=== PATIENT | male | born 1955 | race Hispanic/Latino ===

== ENCOUNTER 2022-07-19 07:00 | Day surgery (SDC) | payer MEDICARE ==
[2022-07-13 14:57] LABS: EOSINOPHILS % (AUTO) 1.2 % (0.0-8.0); HEMATOCRIT 23.5 % (42-54); LYMPHOCYTES % (AUTO) 9.2 % (21.0-51.0); MEAN CORPUSCULAR HEMOGLOBIN 30.8 pg (27.0-33.0); MEAN CORPUSCULAR HGB CONC 32.3 g/dL (32.0-36.0); MEAN CORPUSCULAR VOLUME 95.1 fL (79-99); MONOCYTES % (AUTO) 11.7 % (3.0-13.0); NEUTROPHILS % (AUTO) 76.3 % (40.0-77.0); PLATELET COUNT (AUTO) 218 K/uL (130-400); RED BLOOD CELL COUNT(AUTO) 2.47 MIL/uL (4.50-6.20); RED CELL DISTRIBUTION WIDTH 15.9 % (11.0-15.5); WHITE BLOOD COUNT (AUTO) 6.8 K/uL (4.8-10.8)
[2022-07-13 15:14] LABS: CREATININE 3.9 mg/dL (0.5-1.5); POTASSIUM 4.5 mmol/L (3.5-5.1); TOTAL PROTEIN, SERUM 7.5 g/dL (6.0-8.3)
[2022-07-13 15:20] LABS: APPEARANCE,URINE CLOUDY (CLEAR); BILIRUBIN,URINE NEGATIVE (NEGATIVE); COLOR,URINE LIGHT-YELLOW (YELLOW); GLUCOSE, URINE (UA) NEGATIVE (NEGATIVE); KETONES,URINE NEGATIVE (NEGATIVE); LEUKOCYTE ESTERASE ,URINE 500 Leu/uL (NEGATIVE); NITRATE,URINE NEGATIVE (NEGATIVE); OCCULT BLOOD,URINE MODERATE (NEGATIVE); PROTEIN,URINE 70 mg/dL (NEGATIVE); UROBILINOGEN,URINE 0.2 mg/dL (0.2-1.0)
[2022-07-13 15:28] LABS: BACTERIA,URINE RARE /HPF (None Seen); MUCUS,URINE RARE LPF (None Seen); RBC,URINE 26-50 /HPF (0-1); SQUAMOUS EPITHELIAL CELL,UR FEW /HPF (0-2); WBC,URINE TNTC /HPF (0-1)
[2022-07-13 15:32] LABS: INR 1.04 (0.85-1.15); PROTHROMBIN TIME 11.3 SEC (9.6-11.6)
[2022-07-13 15:33] LABS: PARTIAL THROMBOPLASTIN TIME 28.4 SEC (26.3-35.5)
[2022-07-19] VITALS (21 sets, daily range): BP systolic 14–148; BP diastolic 1–82
[~2022-07-19] VITALS: Ht 185.4 cm; Wt 47.6 kg
[~2022-07-19 07:00] MED LIST: CALC0.25 PO; FOL5I PO; GENTAMICIN 80 MG/NS 100 ML PB 100 ML IV SCH; LEVO-70 PO; MEROPENEM 1 GM VIAL IVP SCH; PARO-66 PO; TAMS-1 PO
[2022-07-19] MEDS ORDERED: LACTATED RINGERS 1000ML 1,000 ML IV ONE (07:12)
[2022-07-19 07:37] LABS: HEMATOCRIT 23.4 % (42-54); LYMPHOCYTES % (AUTO) 17.3 % (21.0-51.0); MEAN CORPUSCULAR HEMOGLOBIN 30.9 pg (27.0-33.0); MEAN CORPUSCULAR HGB CONC 32.5 g/dL (32.0-36.0); MEAN CORPUSCULAR VOLUME 95.1 fL (79-99); MONOCYTES % (AUTO) 9.9 % (3.0-13.0); NEUTROPHILS % (AUTO) 68.3 % (40.0-77.0); PLATELET COUNT (AUTO) 215 K/uL (130-400); POTASSIUM 4.4 mmol/L (3.5-5.1); RED BLOOD CELL COUNT(AUTO) 2.46 MIL/uL (4.50-6.20); RED CELL DISTRIBUTION WIDTH 15.6 % (11.0-15.5)
[2022-07-19] MEDS ORDERED: ROCURONIUM 10MG/1ML SYR 10 MG/ML ML ONE (10:47)
[2022-07-19] MEDS ORDERED: SUCCINYLCHOLINE 200MG/10ML SYR ONE (10:47)
[2022-07-19] MEDS ORDERED: LIDOCAINE PF 100MG/5ML (2%) SYRINGE 5ML ONE ×2 (10:47→12:36)
[2022-07-19] MEDS ORDERED: PROPOFOL 10 MG/ML 20ML VIAL IV ONE (10:47)
[2022-07-19] MEDS ORDERED: MIDAZOLAM HCL 1 MG/ML 2ML VIAL ONE (10:47)
[2022-07-19] MEDS ORDERED: GLYCOPYRROLATE 1 MG/5 ML SYRINGE ONE (10:47)
[2022-07-19] MEDS ORDERED: DEXAMETHASONE SOD PHOSPHATE 10MG/ML 1ML VIAL ONE (10:47)
[2022-07-19] MEDS ORDERED: ONDANSETRON 4MG INJ ONE ×2 (10:47→13:44)
[2022-07-19] MEDS ORDERED: NEOSTIGMINE 5MG/5ML SYR IV ONE (10:47)
[2022-07-19] MEDS ORDERED: FENTANYL CITRATE PF 50 MCG/1 ML 2ML VIAL ONE (10:48)
[2022-07-19] MEDS ORDERED: MEROPENEM 1 GM VIAL IVP ONE (11:09)
[2022-07-19] MEDS ORDERED: EPHEDRINE SULFATE 50 MG/ML AMPULE ONE (11:43)
[2022-07-19] MEDS ORDERED: MORPHINE 2 MG SYG ONE (13:43)
[2022-07-19 13:52] LABS: BASOPHILS % (AUTO) 0.5 % (0.0-5.0); EOSINOPHILS % (AUTO) 0.7 % (0.0-8.0); HEMATOCRIT 21.7 % (42-54); LYMPHOCYTES % (AUTO) 15.1 % (21.0-51.0); MEAN CORPUSCULAR HEMOGLOBIN 30.7 pg (27.0-33.0); MEAN CORPUSCULAR HGB CONC 32.7 g/dL (32.0-36.0); MEAN CORPUSCULAR VOLUME 93.9 fL (79-99); MONOCYTES % (AUTO) 8.7 % (3.0-13.0); NEUTROPHILS % (AUTO) 74.1 % (40.0-77.0); PLATELET COUNT (AUTO) 181 K/uL (130-400); RED BLOOD CELL COUNT(AUTO) 2.31 MIL/uL (4.50-6.20); RED CELL DISTRIBUTION WIDTH 15.9 % (11.0-15.5); WHITE BLOOD COUNT (AUTO) 5.5 K/uL (4.8-10.8)
[2022-07-19 14:03] LABS: CREATININE 3.7 mg/dL (0.5-1.5); POTASSIUM 4.8 mmol/L (3.5-5.1)
== END 2022-07-19 15:45 | disposition home or self-care (01) ==
LOC: DAH 07:00
PROVIDERS: ATTEND Urology
DX: N40.1 Benign prostatic hyperplasia with lower urinary tract symptoms (principal); Z20.822 Contact with and (suspected) exposure to COVID-19; R97.20 Elevated prostate specific antigen [PSA]; N32.89 Other specified disorders of bladder; N13.8 Other obstructive and reflux uropathy; R33.8 Other retention of urine; N18.9 Chronic kidney disease, unspecified; Z98.890 Other specified postprocedural states; Z79.899 Other long term (current) drug therapy
CPT/HCPCS: 80053; 85025 ×3; 85610; 85730; 87077; 87088; 87186; 84154; 84153; 87426; 81001; 36415 ×2; 71045; 93005; 52648; 80048 ×2; 86850; 86900; 86901; 86923; 76942; 76872; 55700; A6260; A4663; J7030; A4354; J7120; J3010; J0330; J3490 ×2; J1100; J2710; J2001 ×2; J2250; J2704; J2405 ×2; J2185 ×2; J1580; A4358 ×2; A4930; A4215; A4223; A6402; A4222; A4221; A4335 ×2; A4554; A4600; A5113